=== PATIENT | male | born 1960 | race Caucasian/White ===

== ENCOUNTER 2016-05-31 15:13 | Emergency (ER) | payer OTHER ==
[~2016-05-31] VITALS: Ht 193 cm; Wt 88.5 kg
[~2016-05-31 15:13] MED LIST: ALBUTEROL0.63 MG/3 INH/SOL; ALBUTEROL1.25 MG/3 INH/SOL; ASPIRIN CHILDRE81 MG PO; ATIVAN0.5 MG PO; ATORVASTATIN CA20 MG PO; BENZONATATE200 M1 PO; BREO ELLIPTA1 POW INH; BUPROPION HYDR150 MG PO; CYCLOBENZAPRINE10 M1 PO; DILAUDID 4 MG TA4 MG PO; DILAUDID2 MG PO; DOXYCYCLINE HY100 M4 PO; DOXYCYCLINE MO100 MG PO; DURAGESIC25 MCG TOP; GUAIFENESIN-COD10 ML PO; HYDROCORTISO453.6 G1 TOP; INCRUSE ELLI62.5 MCG INH; LEADER NIC14 MG/24 H TOP; MEDROL4 M2 PO; MOBIC15 M1 PO; MOTRIN 600 MG600 MG PO; NASONEX0.05 MG/Ac NAS; NICODERM C14 MG/24 H TOP; PREDNISONE 10MG10 M1 PO; PREDNISONE 20MG20 MG PO; PREDNISONE10 M2 PO; PREDNISONE10 MG PO; PREDNISONE50 M1 PO; PROAIR HFA0.09 MG/Ac INH; SPIRIVA 18 MCG18 MCG INH; SYMBICORT 80/4.1 PUF INH; Transderm Nitro 10MG (0.4 MG/Hr) Patch TOP; VALIUM5 M1 PO; VIAGRA100 MG PO; ZOFRAN ODT4 MG PO
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
[2016-05-31 16:06] LABS: ABSOLUTE BASOPHIL COUNT 0.1 /CUMM (0.0-0.2); ABSOLUTE EOSINOPHIL COUNT 0.3 /CUMM (0.0-0.7); ABSOLUTE GRANULOCYTE CT 7.7 /CUMM (1.4-6.5); ABSOLUTE LYMPH COUNT 2.6 /CUMM (1.2-3.4); ABSOLUTE MONOCYTE COUNT 0.8 /CUMM (0.10-0.60); BASOPHIL % 0.6 % (0.0-2.0); EOSINOPHIL % 2.8 % (0-5); GRANULOCYTE % 66.7 % (42.2-75.2); HEMATOCRIT 51.2 % (42-52); MEAN CORPUSCULAR HGB 27.4 PG (27.0-31.0); MEAN CORPUSCULAR HGB CONC 32.9 G/DL (33.0-37.0); MEAN CORPUSCULAR VOLUME 83.4 FL (80.0-94.0); MEAN PLATELET VOLUME 8.8 FL (7.4-10.4); PLATELET COUNT 284 /CUMM (130-400); RBC DISTRIBUTION WIDTH 14.8 % (11.5-14.5); RED BLOOD CELL CT 6.14 /CUMM (4.70-6.10); WHITE BLOOD CELL COUNT 11.6 /CUMM (4.8-10.8)
[2016-05-31 16:16] VITALS: BP 110/74
[2016-05-31] MEDS ORDERED: VISTARIL50 M1 PO (17:16)
[2016-05-31] MEDS ORDERED: MEDROL4 M2 PO (17:16)
[2016-05-31] MEDS ORDERED: GABAPENTIN100 M2 PO (17:18)
[2016-05-31] MEDS ORDERED: HYDROMORPHONE HC4 M1 PO (17:18)
[2016-05-31] MEDS ORDERED: VENTOLIN HFA18 GM INH (17:18)
[2016-05-31] MEDS ORDERED: NAPROXEN500 M2 PO (17:18)
[2016-05-31] MEDS ORDERED: ALBUTEROL2.5 MG/3 M INH/SOL (17:19)
[2016-05-31] MEDS ORDERED: BREO ELLIPTA 11 EACH INH (17:19)
--- NOTE | 2016-05-31 17:20 | RADIOLOGY REPORT ---
EXAMINATION: XR CHEST CLINICAL INFORMATION: Assess for pneumonia. COMPARISON: Chest radiography 03/08/2016. TECHNIQUE: 2 views of the chest were obtained. FINDINGS: Radiodense shrapnel in the region of the right scapula redemonstrated. Unchanged mild blunting of the right costophrenic angle may represent scarring or trace pleural fluid. No new consolidation, pneumothorax, or pulmonary edema. No mediastinal widening. No acute osseous abnormalities. Chronic deformity of the distal right clavicle. IMPRESSION: No evidence of pneumonia. No significant interval change compared to prior radiography.
== END 2016-05-31 17:18 ==
LOC: ERH 15:13
PROVIDERS: Physician Assistant Medical
DX: G47.00 Insomnia, unspecified (principal); R11.0 Nausea; J44.9 Chronic obstructive pulmonary disease, unspecified; Z72.0 Tobacco use

== ENCOUNTER 2016-09-26 18:10 | Emergency (ER) | payer OTHER ==
[~2016-09-26] VITALS: Ht 182.9 cm; Wt 90.7 kg
[~2016-09-26 18:10] MED LIST changes: +ALBUTEROL2.5 MG/3 M INH/SOL; +BREO ELLIPTA 11 EACH INH; +GABAPENTIN100 M2 PO; +HYDROMORPHONE HC4 M1 PO; +NAPROXEN500 M2 PO; +VENTOLIN HFA18 GM INH; +VISTARIL50 M1 PO
[2016-09-26 19:56] VITALS: BP 132/84
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
[2016-09-26] MEDS ORDERED: SPIRIVA18 MCG INH (20:23)
[2016-09-26] MEDS ORDERED: HYDROMORPHONE HC2 M1 PO (20:25)
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
== END 2016-09-26 21:18 ==
LOC: ERH 18:10
DX: R07.89 Other chest pain (principal)
CPT/HCPCS: 71100-RT; 96374; 96376

== ENCOUNTER 2016-10-27 15:47 | Emergency (ER) | payer SELFPAY ==
[~2016-10-27] VITALS: Ht 182.9 cm; Wt 90.7 kg
[~2016-10-27 15:47] MED LIST changes: +HYDROMORPHONE HC2 M1 PO; +SPIRIVA18 MCG INH
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
[2016-10-27 19:16] VITALS: BP 126/78
== END 2016-10-27 19:18 ==
LOC: ERH 15:47
DX: R51 Headache (principal)
CPT/HCPCS: 96374; 96375; J1200; J1885; J2405

== ENCOUNTER 2017-04-18 16:20 | Emergency (ER) | payer OTHER ==
[~2017-04-18] VITALS: Ht 182.9 cm; Wt 102.1 kg
[~2017-04-18 16:20] MED LIST changes: -GABAPENTIN100 M2 PO; +GABAPENTIN300 M2 PO; +IPRAT-ALBUT 0.5-3 ML INH; +MUCINEX DM ER1 EAC1 PO; +PREDNISONE20 M1 PO; +ZITHROMAX250 M2 PO; +ZOFRAN ODT4 M1 SL
[2017-04-18 16:26] VITALS: BP 170/88
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
[2017-04-18] MEDS ORDERED: DILAUDID2 M1 PO (17:38)
== END 2017-04-18 18:01 ==
LOC: ERH 16:20
DX: G89.29 Other chronic pain (principal)

== ENCOUNTER 2017-09-06 11:20 | Emergency (ER) | payer OTHER, MEDICARE ==
[~2017-09-06] VITALS: Ht 182.9 cm; Wt 99.8 kg
[~2017-09-06 11:20] MED LIST changes: +DILAUDID2 M1 PO
[2017-09-06 11:23] VITALS: BP 136/98
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
--- NOTE | 2017-09-06 12:44 | RADIOLOGY REPORT ---
EXAMINATION: XR ELBOW, RIGHT CLINICAL INFORMATION: 57-year-old male presented with right elbow pain following injury. COMPARISON: None TECHNIQUE: Four views of the right elbow. FINDINGS: The bones and soft tissues are normal. No fracture or joint effusion. Alignment is anatomic. Joint spaces are maintained. Incidental note is made of mild osteophyte along the coronoid process of the ulna, seen only on the lateral projection, consistent with mild osteoarthrosis. IMPRESSION: No radiographic evidence of any acute fracture, subluxation, dislocation or joint effusion present. 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
== END 2017-09-06 13:07 ==
LOC: ERH 11:20
DX: S53.401A Unspecified sprain of right elbow, initial encounter (principal); W22.8XXA Striking against or struck by other objects, initial encounter; Y93.9 Activity, unspecified; Y92.9 Unspecified place or not applicable
CPT/HCPCS: 73080-RT; 96372; J1885